=== PATIENT | female | born 1990 | race Caucasian/White ===

== ENCOUNTER 2016-08-22 18:31 | Emergency (ER) | payer BC, OTHER ==
[2016-08-22 18:37] VITALS: BP 151/88; PULSE 82; TEMP 98.9; BMI 26.5
--- NOTE | 2016-08-22 18:50 | PDOC ---
History of Present Illness - General History Source: Patient Exam Limitations: No Limitations - History of Present Illness Initial Comments: 08/22/16 18:59 The patient is a 25 year old female with no significant past medical history who presents to the ED complaining right fourth finger nail injury that occurred this evening. She states she was running on a treadmill when she hit her finger on the machine. She is wearing acrylic nails, and her right fourth acrylic nail came off, pulling off the nail underneath up until the base of the nail. On evaluation, the patient complains of 5/10 pain. She denies any other injury. <Alessandra Ortiz - Last Filed: 08/22/16 18:59> <Best Kebede - Last Filed: 08/22/16 19:08> - General Chief Complaint: Pain, Acute Stated Complaint: NAIL INJURY Time Seen by Provider: 08/22/16 18:32 Past History <Alessandra Ortiz - Last Filed: 08/22/16 18:59> - Past Medical History Thyroid Disease: Yes - Surgical History Cholecystectomy: Yes - Immunization History Immunization Up to Date: Yes (TETANUS TODAY, 12/23/14) - Psycho/Social/Smoking Cessation Hx Anxiety: No Suicidal Ideation: No Smoking Status: No Smoking History: Never smoked Number of Cigarettes Smoked Daily: 0 Hx Alcohol Use: No Drug/Substance Use Hx: No Substance Use Type: None Hx Substance Use Treatment: No <Best Kebede - Last Filed: 08/22/16 19:08> - Past Medical History Allergies/Adverse Reactions: Allergies Allergy/AdvReac Type Severity Reaction Status Date / Time No Known Allergies Allergy Verified 08/22/16 18:33 Home Medications: Ambulatory Orders Levothyroxine [Synthroid -] 110 mcg PO DAILY 08/22/16 Naproxen [EC-Naprosyn] 375 mg PO BID PRN #10 tablet.ec 08/22/16 Norgestimate-Ethinyl Estradiol [Sprintec 28 Day Tablet] 1 each PO DAILY Review of Systems - Review of Systems Able to Perform ROS?: Yes Comments:: 08/22/16 19:02 CONSTITUTIONAL: Absent: Fever, Chills, Diaphoresis, Generalized Weakness, Malaise, Loss of Appetite HEENT: Absent: Rhinorrhea, Nasal Congestion, Throat Pain, Throat Swelling, Difficulty Swallowing, Mouth Swelling, Ear Pain, Eye Pain, Visual Changes CARDIOVASCULAR: Absent: Chest Pain, Syncope, Palpitations, Irregular Heart Rate, Lightheadedness , Peripheral Edema RESPIRATORY: Absent: Cough, Shortness of Breath, SOB with Exertion, Orthopnea, Wheezing, Stridor, Hemoptysis GASTROINTESTINAL: Absent: Abdominal pain, Abdominal Distension, Nausea, Vomiting, Diarrhea, Constipation, Melena, Hematochezia GENITOURINARY: Absent: Dysuria, Frequency, Urgency, Hesitancy, Flank Pain, Genital Pain MUSCULOSKELETAL: Absent: Myalgia, Arthralgia, Joint Swelling, Back pain, Neck Pain SKIN: Present: R fourth nail injury Absent: Rash, Itching, PalloR HEMEATOLOGIC/IMMUNOLOGIC: Absent: Easy Bleeding, Easy Bruising, Lymphadenopathy, Frequent infections ENDOCRINE: Absent: Unexplained Weight Gain, Unexplained Weight Loss, Heat Intolerance, Cold Intolerance NEUROLOGIC: Absent: Headache, Focal Weakness, Paresthesias, Vertigo, Lightheadedness, Unsteady Gait, Seizure, Mental Status Changes, Incontinence PSYCHIATRIC: Absent: Anxiety, Depression <Alessandra Ortiz - Last Filed: 08/22/16 18:59> *Physical Exam - Vital Signs Last Vital Signs Temp Pulse Resp BP Pulse Ox 98.9 F 82 16 151/88 100 08/22/16 18:32 08/22/16 18:32 08/22/16 18:32 08/22/16 18:32 08/22/16 18:32 - Physical Exam Comments: 08/22/16 19:02 GENERAL: [The patient is awake, alert, and fully oriented, in no acute distress. ] HEAD: [Normal with no signs of trauma.] EYES: [Pupils equal, round and reactive to light, extraocular movements intact, sclera anicteric, conjunctiva clear.] EXTREMITIES: [Normal range of motion, no edema.] NEUROLOGICAL: [Normal speech, normal gait.] PSYCH: [Normal mood, normal affect.] SKIN: [Warm, Dry, normal turgor, no rashes or lesions noted.] <Alessandra Ortiz - Last Filed: 08/22/16 18:59> - Vital Signs Last Vital Signs Temp Pulse Resp BP Pulse Ox 98.9 F 82 16 151/88 100 08/22/16 18:32 08/22/16 18:32 08/22/16 18:32 08/22/16 18:32 08/22/16 18:32 <Best Kebede - Last Filed: 08/22/16 19:08> Medical Decision Making - Medical Decision Making 08/22/16 19:05 Patient is a 25-year-old female who presents with an avulsion injury to her right ring finger nail with acrylic converse. She bumped the nail into the treadmill at the gym and the nail came off the nailbed, but the base remained in place and intact. On examination, the nail has some bleeding along the distal margin, but is in good position with the base of the nail in proper position. Finger soaked with Betadine solution and saline. Bacitracin applied to the edges of the nail. Dressing applied to maintain the nail in good position and to protect it. Naprosyn given for pain. Patient stable for discharge. <Best Kebede - Last Filed: 08/22/16 19:08> *DC/Admit/Observation/Transfer - Attestations Scribe Attestion: 08/22/16 19:03 Documentation prepared by Alessandra Ortiz, acting as medical receptionist biller for Best Kebede MD. <Alessandra Ortiz - Last Filed: 08/22/16 18:59> - Discharge Dispostion Admit: No <Best Kebede - Last Filed: 08/22/16 19:08> Diagnosis at time of Disposition: Partial avulsion of fingernail Qualifiers: Encounter type: initial encounter Qualified Code(s): S61.309A - Unspecified open wound of unspecified finger with damage to nail, initial encounter - Discharge Dispostion Disposition: HOME Condition at time of disposition: Stable - Prescriptions Prescriptions: Naproxen [EC-Naprosyn] 375 mg PO BID PRN #10 tablet.ec PRN Reason: Pain - Patient Instructions Additional Instructions: You were evaluated today for a partial avulsion of the right fourth fingernail. The base of the nail is still in good position, so continue to protect the nail in its normal position and it will heal back down to the nail bed. Apply ice packs to help with pain, 20 minutes every few hours. Take Naprosyn twice a day as needed for pain. Elevate the hand to reduce throbbing and pain. Follow up immediately with your doctor or the ER if there are any signs of infection. The new nail should grow out in a healthy fashion with time.
[2016-08-22] MEDS ORDERED: NAPROXEN 375 MG TABLET (FP) PO ONE (19:04)
[2016-08-22] MEDS ORDERED: NAPROXEN 375 MG TABLET (FP) ONE (19:05)
== END 2016-08-22 19:11 | disposition home or self-care (01) ==
LOC: FER 18:31
DX: S61.309A Unspecified open wound of unspecified finger with damage to nail, initial encounter (principal); W21.89XA Striking against or struck by other sports equipment, initial encounter; Y93.A1 Activity, exercise machines primarily for cardiorespiratory conditioning; Y92.39 Other specified sports and athletic area as the place of occurrence of the external cause; E07.9 Disorder of thyroid, unspecified
CPT/HCPCS: 99282-25

== ENCOUNTER 2016-09-30 06:34 | Emergency (ER) | payer OTHER ==
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
[2016-09-30 08:02] VITALS: BP 122/63; PULSE 85; TEMP 98.1; BMI 32.9
[2016-09-30 08:22] LABS: BASOPHIL 0.4 % (0-2.0); EOSINOPHIL 2.2 % (0-4.5); MCH 29.5 pg (25.7-33.7); MCHC 33.3 g/dl (32.0-36.0); MEAN CELL VOLUME 88.7 fl (80-96); MEAN PLT VOLUME 8.8 fl (7.5-11.1); NEUTROPHILS 78.8 % (42.8-82.8); PLATELET COUNT 360 K/MM3 (134-434); RDW 13.1 % (11.6-15.6); WHITE BLOOD COUNT 15.5 K/mm3 (4.0-10.0)
[2016-09-30] MEDS ORDERED: IBUPROFEN 600 MG TABLET (FP) PO ONE (08:33)
[2016-09-30] MEDS: IBUPROFEN 400 MG TABLET (FP) PO ONE ×2 (08:38→08:40)
[2016-09-30 08:50] LABS: ALBUMIN 3.7 g/dl (3.4-5.0); ANION GAP 12 (8-16); CALCIUM 9.1 mg/dL (8.5-10.1); CHOLESTEROL 262 mg/dL (50-200); CO2 22 mmol/L (21-32); COCKROFT - GAULT 183.1325; CREATININE 0.6 mg/dL (0.55-1.02); GLUCOSE,RANDOM 87 mg/dL (74-106); SGOT/AST 16 U/L (15-37); SGPT/ALT 22 U/L (12-78); URIC ACID 4.4 mg/dL (2.6-7.2)
[2016-09-30 08:53] LABS: ALK PHOS 73 U/L (45-117); BILIRUBIN,TOTAL 0.3 mg/dL (0.2-1.0); LDH 183 U/L (84-246); TOT PROT 7.6 g/dl (6.4-8.2)
[2016-09-30 09:31] LABS: HIV 1 & 2 AB NEGATIVE; HIV 1 AGp24 NEGATIVE
== END 2016-09-30 09:13 | disposition home or self-care (01) ==
LOC: JER 06:34
DX: Z77.21 Contact with and (suspected) exposure to potentially hazardous body fluids (principal); S89.81XA Other specified injuries of right lower leg, initial encounter; Y35.811A Legal intervention involving manhandling, law enforcement official injured, initial encounter; Y93.89 Activity, other specified; Y92.238 Other place in hospital as the place of occurrence of the external cause; Y99.0 Civilian activity done for income or pay
CPT/HCPCS: 36415; 73560-TC-RT; 80053; 82465; 82977; 83615; 84100; 84478; 84550; 85025; 86704; 86706; 87340; 87389; 99282-25

== ENCOUNTER 2016-11-17 22:48 | Emergency (ER) | payer BC, OTHER ==
[2016-11-17 22:53] VITALS: BP 128/77; PULSE 71; TEMP 98.1; BMI 33.8
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
== END 2016-11-17 23:07 | disposition home or self-care (01) ==
LOC: FER 22:48
DX: S90.511A Abrasion, right ankle, initial encounter (principal); W22.09XA Striking against other stationary object, initial encounter; Y93.89 Activity, other specified; Y92.9 Unspecified place or not applicable; E03.9 Hypothyroidism, unspecified
CPT/HCPCS: 99282-25

== ENCOUNTER 2017-01-17 02:05 | Emergency (ER) | payer OTHER, BC ==
[2017-01-17 03:14] VITALS: BP 104/55; PULSE 83; TEMP 98.1; BMI 29.6
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
[2017-01-17] MEDS ORDERED: IBUPROFEN 600 MG TABLET (FP) PO ONE (04:07)
== END 2017-01-17 04:19 | disposition home or self-care (01) ==
LOC: JER 02:05
DX: S13.4XXA Sprain of ligaments of cervical spine, initial encounter (principal); V49.49XA Driver injured in collision with other motor vehicles in traffic accident, initial encounter; Y92.414 Local residential or business street as the place of occurrence of the external cause; Y99.0 Civilian activity done for income or pay; Y93.89 Activity, other specified
CPT/HCPCS: 99281-25

== ENCOUNTER 2017-10-26 20:01 | Emergency (ER) | payer BC, OTHER ==
[2017-10-26 20:07] VITALS: BP 123/80; PULSE 80; TEMP 98; BMI 36.6
--- NOTE | 2017-10-26 20:08 | PDOC ---
History of Present Illness - General History Source: Patient Exam Limitations: No Limitations <Sera Wiggins - Last Filed: 10/26/17 21:35> - General History Source: Patient Exam Limitations: No Limitations <Laura Allison I - Last Filed: 10/26/17 22:45> - General Chief Complaint: Chest Pain Stated Complaint: CHEST HEAVINESS Time Seen by Provider: 10/26/17 20:08 - History of Present Illness Initial Comments: 10/26/17 20:26 The patient is a 27 year old female with a significant PMH of hyperthyroidism who presents to the emergency department with intermittent chest pain. The patient reports that she experienced some chest tightness this morning when she woke up. She states that she experienced this chest pain again an hour ago with radiation to her left shoulder. The patient reports that it lasted for a little while . She states that she took advil and was given relief. The patient reports experiencing associated shortness of breath while moving around.The patient reports that she is currently on control. She denies any recent travel. The patient denies any headache or dizziness.she denies any fever, chills, nausea, vomiting, diarrhea or constipation. She denies any urinary symptoms. The patient denies any other complaints. PAST MEDICAL HISTORY: Hyperthyroidism PAST SURGICAL HISTORY: no significant history FAMILY HISTORY: Mother:Bloodclot secondary to malignancy, hypertension SOCIAL HISTORY: Pt lives with family and is employed. MEDICATIONS: reviewed ALLERGIES: As per nursing notes General: No fevers or chills, no weakness, no weight loss HEENT: No change in vision. No sore throat,. No ear pain CardioVascular: (+) chest pain , shortness of breath Respiratory:No cough, or wheezing. Gastrointestinal: no nausea, vomiting, diarrhea or constipation, No rectal bleeding Genitourinary: No dysuria, hematuria, or frequency Musculoskeletal: No joint or muscle pain or swelling Neurologic: No headache, vertigo, dizziness or loss of consciousness Psychiatric: nor depression Skin: No rashes or easy bruising Endocrine: no increased thirst or abnormal weight change Allergic: no skin or latex allergy All other systems reviewed and normal General: Well-nourished well-developed individual, no acute distress HEENT: Throat: Normal, tonsils normal, no erythema or exudate Neck: Supple, no meningeal signs, no lymphadenopathy Eyes::Pupils equal reactive and round, extraocular motion intact Chest: Nontender to palpation Cardiac: S1-S2 normal, regular rate and rhythm, no murmurs rubs or gallops Respiratory: Lungs clear to auscultation bilateral Abdomen: Soft, nondistended, normal bowel sounds, nontender to palpation diffusely Extremities: Warm, dry, no cyanosis, clubbing, or edema Skin: No rashes Neuro: Alert and oriented x3, nonfocal exam, grossly intact, normal gait Psych: Normal mood and affect 10/26/17 21:35 (Sera Wiggins) A portion of this note was documented by scribe services under my direction. I have reviewed the details of the note, within reason, and agree with the documentation. The case summary and management plan written by me. 10/26/17 20:44 Medical decision making: This is a 26-year-old female who comes in complaining of some pleuritic type chest pain associated with some shortness of breath. Patient has risk factors for PE including control pills and her mother who has history of DVTs secondary to a malignancy. Will obtain workup including CBC, comp, d-dimer, cardiac enzymes, EKG and chest x-ray. If d-dimer is elevated we'll obtain a CT angiogram of chest Will reassess and follow-up results 10/26/17 22:43 Reassessment patient symptoms are unchanged. She is stable. Patient's workup was completely negative. She had a normal white count and normal H&H. Her chemistries were normal and her d-dimer was normal. Her urine did have a few red cells and white cells but she has no symptoms of a urinary tract infection so I'll not treat at this time.. Patient discharged home will follow-up with her primary care doctor. (Laura Allison I) Past History <Sera Wiggins - Last Filed: 10/26/17 21:35> - Past Medical History COPD: No Thyroid Disease: Yes (HYPO) - Surgical History Cholecystectomy: Yes - Immunization History Immunization Up to Date: Yes (TETANUS TODAY, 12/23/14) - Suicide/Smoking/Psychosocial Hx Smoking Status: No Smoking History: Unknown if ever smoked Have you smoked in the past 12 months: No Number of Cigarettes Smoked Daily: 0 Information on smoking cessation initiated: No Hx Alcohol Use: No Drug/Substance Use Hx: No Substance Use Type: None Hx Substance Use Treatment: No <Laura Allison I - Last Filed: 10/26/17 22:45> - Past Medical History Allergies/Adverse Reactions: Allergies Allergy/AdvReac Type Severity Reaction Status Date / Time No Known Allergies Allergy Verified 01/17/17 03:14 Home Medications: Ambulatory Orders Levothyroxine [Synthroid -] 88 mcg PO DAILY 10/26/17 - Vital Signs Last Vital Signs Temp Pulse Resp BP Pulse Ox 98 F 80 14 123/80 100 10/26/17 20:04 10/26/17 20:04 10/26/17 20:04 10/26/17 20:04 10/26/17 20:04 Heart Score/ECG Review <Sera Wiggins - Last Filed: 10/26/17 21:35> <Laura Allison I - Last Filed: 10/26/17 22:45> - ECG Intrepretation Comment:: 10/26/17 21:10 Vent rate: 65 bpm QRS Interval: 86ms QT/QTc: 398/413 Normal sinus rythm (Sera Wiggins) ED Treatment Course - LABORATORY CBC & Chemistry Diagram: 10/26/17 20:20 10/26/17 20:20 <Sera Wiggins - Last Filed: 10/26/17 21:35> - LABORATORY CBC & Chemistry Diagram: 10/26/17 20:20 10/26/17 20:20 <Laura Allison I - Last Filed: 10/26/17 22:45> - ADDITIONAL ORDERS Additional order review: Laboratory Results 10/26/17 10/26/17 10/26/17 20:20 20:20 20:20 D-Dimer Sodium 136 Potassium 4.0 Chloride 101 Carbon Dioxide 27 Anion Gap 8 BUN 14 Creatinine 0.9 Creat Clearance w eGFR > 60 Random Glucose 83 Calcium 9.2 Total Bilirubin 0.8 AST 17 ALT 17 Alkaline Phosphatase 67 Creatine Kinase 41 Troponin I < 0.03 Total Protein 7.3 Albumin 3.8 Urine Color Urine Appearance Urine pH Ur Specific [place] Urine Protein Urine Glucose (UA) Urine Ketones Urine Blood Urine Nitrite Urine Bilirubin Urine Urobilinogen Ur Leukocyte Esterase Urine HCG, Qual 10/26/17 10/26/17 20:20 20:05 D-Dimer 232 Sodium Potassium Chloride Carbon Dioxide Anion Gap BUN Creatinine Creat Clearance w eGFR Random Glucose Calcium Total Bilirubin AST ALT Alkaline Phosphatase Creatine Kinase Troponin I Total Protein Albumin Urine Color Yellow Urine Appearance Clear Urine pH 5.5 Ur Specific [place] 1.020 Urine Protein Negative Urine Glucose (UA) Negative Urine Ketones Negative Urine Blood 2+ H Urine Nitrite Negative Urine Bilirubin Negative Urine Urobilinogen 0.2 Ur Leukocyte Esterase 2+ H Urine HCG, Qual Negative 10/26/17 20:20 RBC 4.95 MCV 87.2 MCHC 33.7 RDW 12.2 MPV 8.1 Neutrophils % 61.4 Lymphocytes % 24.1 Monocytes % 6.6 Eosinophils % 6.4 H Basophils % 1.5 - RADIOLOGY Radiology Studies Ordered: Category Date Time Status CHEST X-RAY PORTABLE* [RAD] Stat Radiology 10/26/17 20:14 Completed - Medications Given in the ED: ED Medications Discontinued Medications Generic Name Dose Route Start Last Admin Trade Name Freq PRN Reason Stop Dose Admin Acetaminophen 1,000 mg 10/26/17 22:06 10/26/17 22:09 Tylenol - PO 10/26/17 22:07 1,000 mg ONCE ONE Administration *DC/Admit/Observation/Transfer <Sera Wiggins - Last Filed: 10/26/17 21:35> - Discharge Dispostion Decision to Admit order: No <aLura Allison I - Last Filed: 10/26/17 22:45> Diagnosis at time of Disposition: Chest wall discomfort - Discharge Dispostion Disposition: HOME Condition at time of disposition: Good - Referrals Referrals: Ursula Hicks MD [Primary Care Provider] - - Patient Instructions Additional Instructions: Take Tylenol or Motrin as needed for the pain. Your workup was completely negative including the test looking for a blood clot. Return to the emergency department immediately with ANY new, persistent or worsening symptoms. Continue any medications as previously prescribed by your physician. You should follow up with your primary doctor as soon as possible regarding today's emergency department visit. . Please make sure your doctor reviews the results of your emergency evaluation. Thank you for coming to the Emergency Department today for your care. It was a pleasure to see you today. Please note that your evaluation is INCOMPLETE until you follow-up with your doctor. - Post Discharge Activity - Attestations Scribe Attestion: 10/26/17 20:26 Documentation prepared by Sera Wiggins, acting as director medical economics for Laura Allison MD. (Sera Wiggins)
[2017-10-26 20:35] LABS: HEMOGLOBIN 14.6 GM/dl (10.7-15.3); MEAN PLT VOLUME 8.1 fl (7.5-11.1)
[2017-10-26 20:37] LABS: BASO % 1.5 % (0-2.0); EOS % 6.4 % (0-4.5); HEMATOCRIT 43.2 % (32.4-45.2); LYMPH % 24.1 % (8-40); MCH 29.4 pg (25.7-33.7); MCHC 33.7 g/dl (32.0-36.0); MEAN CELL VOLUME 87.2 fl (80-96); MONO % 6.6 % (3.8-10.2); NEUT % 61.4 % (42.8-82.8); PLATELET COUNT 502 K/MM3 (134-434); RBC 4.95 M/mm3 (3.60-5.2); RDW 12.2 % (11.6-15.6); WHITE BLOOD COUNT 9.2 K/mm3 (4.0-10.8)
[2017-10-26 21:00] LABS: ALBUMIN 3.8 g/dl (3.5-5.0); ALK PHOS 67 U/L (32-92); ANION GAP 8 (8-16); BILIRUBIN,TOTAL 0.8 mg/dl (0.2-1.0); BLOOD UREA NITROGEN 14 mg/dl (7-18); CALCIUM 9.2 mg/dl (8.4-10.2); CHLORIDE 101 mmol/L (98-107); CO2 27 mmol/L (22-28); CREATININE 0.9 mg/dl (0.6-1.3); GLUCOSE,RANDOM 83 mg/dl (74-106); SGOT/AST 17 U/L (10-42); SGPT/ALT 17 U/L (10-40); SODIUM 136 mmol/L (136-145); TOT PROT 7.3 g/dl (6.4-8.3)
[2017-10-26 21:01] LABS: PH,URINE 5.5 (4.5-8); URINE APPEARANCE Clear; URINE BILIRUBIN Negative (NEGATIVE); URINE COLOR YELLOW; URINE GLUCOSE (UA) Negative (NEGATIVE); URINE KETONE Negative (NEGATIVE); URINE LEUK ESTERASE 2+ (NEGATIVE); URINE NITRITE Negative (NEGATIVE); URINE PROTEIN Negative (NEGATIVE); URINE UROBILINOGEN 0.2 (0.2-1.0)
[2017-10-26 21:12] LABS: HCG,QUALITATIVE URINE NEGATIVE
[2017-10-26] MEDS ORDERED: ACETAMINOPHEN 500 MG TABLET (FP) PO ONE (22:06)
[2017-10-26] MEDS ORDERED: ACETAMINOPHEN 500 MG TABLET (FP) ONE (22:10)
[2017-10-26 23:17] LABS: EPI CELLS FEW /HPF; URINE BACTERIA FEW /hpf (NEGATIVE); URINE WBC 15-25 (0-5)
--- NOTE | 2017-10-27 11:46 | EKG ---
Test Reason : Blood Pressure : / mmHG Vent. Rate : 065 BPM Atrial Rate : 065 BPM P-R Int : 136 ms QRS Dur : 086 ms QT Int : 398 ms P-R-T Axes : 017 049 033 degrees QTc Int : 413 ms NORMAL SINUS RHYTHM NORMAL ECG WHEN COMPARED WITH ECG OF 09-JAN-2014 14:28, NO SIGNIFICANT CHANGE WAS FOUND Confirmed by CURRY ALLRED MD ([id number]) on 10/27/2017 11:45:57 AM Referred By: MD RONQUILLO Confirmed By:CURRY ALLRED MD
== END 2017-10-26 22:47 | disposition home or self-care (01) ==
LOC: FER 20:01
DX: R07.89 Other chest pain (principal); E03.9 Hypothyroidism, unspecified
CPT/HCPCS: 36415; 71045-TC-FY; 80053; 81003; 81015; 82550; 84484; 84703; 85025; 85379; 93005; 99284-25

== ENCOUNTER 2018-04-30 03:43 | Emergency (ER) | payer OTHER, BC ==
[2018-04-30 04:04] VITALS: BP 120/75; PULSE 86; TEMP 98; BMI 27.4
--- NOTE | 2018-04-30 04:07 | PDOC ---
Attending Attestation - Resident Resident Name: Vinny Healy - ED Attending Attestation I have performed the following: I have examined & evaluated the patient, The case was reviewed & discussed with the resident, I agree w/resident's findings & plan
[2018-04-30 04:24] LABS: URINE APPEARANCE CLEAR; URINE BILIRUBIN NEGATIVE (<2.0 mg/dL); URINE COLOR YELLOW; URINE GLUCOSE (UA) NEGATIVE (NEGATIVE); URINE KETONE NEGATIVE (NEGATIVE); URINE LEUK ESTERASE NEGATIVE (NEGATIVE); URINE NITRITE NEGATIVE (NEGATIVE); URINE PROTEIN 2+ (NEGATIVE); URINE UROBILINOGEN NEGATIVE mg/dL (0.2-1.0)
[2018-04-30 04:28] LABS: EPI CELLS RARE /HPF (FEW); URINE BACTERIA FEW /hpf (NONE SEEN); URINE HYALINE CAST 1 /lpf; URINE MUCUS MODERATE
--- NOTE | 2018-04-30 05:21 | PDOC ---
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 - Physicial Exam PE: 04/30/18 05:21 Agree with resident exam - Medical Decision Making 04/30/18 05:21 If XR normal; home with mahesh wrap.
--- NOTE | 2018-04-30 05:31 | PDOC ---
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 No other injury. Past History - Past Medical History Allergies/Adverse Reactions: Allergies Allergy/AdvReac Type Severity Reaction Status Date / Time No Known Allergies Allergy Verified 04/30/18 04:02 Home Medications: Ambulatory Orders Cetirizine HCl [Zyrtec -] 10 mg PO DAILY 01/17/18 Levothyroxine [Synthroid -] 100 mcg PO DAILY 01/17/18 Norgestimate-Ethinyl Estradiol [Sprintec 28 Day Tablet] 1 each PO DAILY COPD: No Thyroid Disease: Yes (HYPO) - Surgical History Cholecystectomy: Yes - Immunization History TDAP Vaccination: Yes (DECEMBER 2014) Immunization Up to Date: Yes (TETANUS TODAY, 12/23/14) - Suicide/Smoking/Psychosocial Hx Smoking Status: No Smoking History: Never smoked Have you smoked in the past 12 months: No Number of Cigarettes Smoked Daily: 0 Information on smoking cessation initiated: No Hx Alcohol Use: No Drug/Substance Use Hx: No Substance Use Type: None Hx Substance Use Treatment: No Review of Systems - Review of Systems Able to Perform ROS?: Yes Is the patient limited [place] proficient: No Constitutional: No: Symptoms Reported HEENTM: No: Symptoms Reported Respiratory: No: Symptoms reported Cardiac (ROS): No: Symptoms Reported ABD/GI: No: Symptoms Reported Musculoskeletal: No: Symptoms Reported Integumentary: No: Symptoms Reported Neurological: No: Symptoms reported *Physical Exam - Vital Signs Last Vital Signs Temp Pulse Resp BP Pulse Ox 98.0 F 86 18 120/75 100 04/30/18 04:03 04/30/18 04:03 04/30/18 04:03 04/30/18 04:03 04/30/18 04:03 - Physical Exam Musculoskeletal: positive: Normal Inspection. negative: CVA Tenderness Extremity: positive: Normal Capillary Refill, Normal Inspection, Normal Range of Motion, Tender (over proximal phalanx of right fifth digit. ) ED Treatment Course - ADDITIONAL ORDERS Additional order review: Laboratory Results 04/30/18 04:17 Urine Color Yellow Urine Appearance Clear Urine pH 6.0 Ur Specific [place] 1.029 Urine Protein 2+ H Urine Glucose (UA) Negative Urine Ketones Negative Urine Blood Negative Urine Nitrite Negative Urine Bilirubin Negative Urine Urobilinogen Negative Ur Leukocyte Esterase Negative Urine WBC (Auto) 3 Urine RBC (Auto) 2 Ur Epithelial Cells Rare Urine Bacteria Few Hyaline Casts 1 Urine Mucus Moderate - RADIOLOGY Radiology Studies Ordered: Category Date Time Status HAND- RIGHT [RAD] Stat Radiology 04/30/18 04:04 Taken Medical Decision Making - Medical Decision Making 04/30/18 05:41 xray to r/o fracture. Xray negative for fractures. Likely sprain. patient able to range fully, minimal pain. Doesnt need pain control. Will d/c *DC/Admit/Observation/Transfer Diagnosis at time of Disposition: Finger injury - Discharge Dispostion Disposition: HOME Condition at time of disposition: Improved Decision to Admit order: No - Referrals - Patient Instructions Printed Discharge Instructions: Finger Sprain Additional Instructions: Come back to the ER for any new, worsening or concerning symptoms. - Post Discharge Activity
== END 2018-04-30 05:33 | disposition home or self-care (01) ==
LOC: JER 03:43
DX: S63.636A Sprain of interphalangeal joint of right little finger, initial encounter (principal); Y35.811A Legal intervention involving manhandling, law enforcement official injured, initial encounter; Y93.89 Activity, other specified; Y92.89 Other specified places as the place of occurrence of the external cause; Y99.0 Civilian activity done for income or pay
CPT/HCPCS: 73130-TC-RT-FY; 81003; 81015; 99282-25

== ENCOUNTER 2019-01-25 12:17 | Emergency (ER) | payer BC, OTHER | END 2019-01-25 12:49 | disposition home or self-care (01) | LOC: FER 12:17 ==

== ENCOUNTER 2019-12-21 06:36 | Day surgery (SDC) | payer BC ==
[2019-12-21 06:53] VITALS: BMI 39.3
--- NOTE | 2019-12-21 07:46 | PDOC ---
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 She was diagnosed with an 8mm kidney stone on the L on November 13. She states she has not had pain in the interim. Pain is intermittent, colicky, sharp, radiating to LLQ. She took tylenol without relief. She is approximately 2.5 weeks into her menstrual cycle. Currently with mild dull pain. - Physicial Exam PE: GENERAL: Awake, alert, and fully oriented, in no acute distress HEAD: No signs of trauma EYES: PERRLA, EOMI, sclera anicteric, conjunctiva clear ENT: Auricles normal inspection, hearing grossly normal, nares patent, oropharynx clear without exudates. Moist mucosa NECK: Normal ROM, supple, no lymphadenopathy, JVD, or masses LUNGS: Breath sounds equal, clear to auscultation bilaterally. No wheezes, and no crackles HEART: Regular rate and rhythm, normal S1 and S2, no murmurs, rubs or gallops ABDOMEN: Soft, +LLQ tenderness, normoactive bowel sounds. No guarding, no rebound. No masses EXTREMITIES: Normal range of motion, no edema. No clubbing or cyanosis. No cor ds, erythema, or tenderness NEUROLOGICAL: Cranial nerves II through XII grossly intact. Normal speech, normal gait. Motor and sensation intact SKIN: Warm, dry, normal turgor, no rashes or lesions noted. - Medical Decision Making Pt was uncomfortable but very mild pain on my initial assessment. DDx at that time was kidney stone vs infected stone vs ruptured ovarian cyst. However, on repeat exam she was very uncomfortable, unable to find a comfortable position in chair. More suspicious for kidney stone. Contacted Dr. Durbin as she is already scheduled for future lithotripsy. Will take her for lithotripsy today. Discharge - Discharge Information Problems reviewed: Yes Clinical Impression/Diagnosis: Nephrolithiasis Condition: Stable - Follow up/Referral Referrals: Nicole Washington MD [Primary Care Provider] - - Patient Discharge Instructions - Post Discharge Activity
--- NOTE | 2019-12-21 07:52 | PDOC ---
History of Present Illness - General Chief Complaint: Pain Stated Complaint: PAIN,LT SIDE Time Seen by Provider: 12/21/19 07:06 Exam Limitations: No Limitations - History of Present Illness Initial Comments: 29 yo female with pmh of miguel, right sided ovarian cyst, and nephrolithiasis coming in with left sided flank pain that started last night at 7:30 pm. Pt explains that pain is similar to pain she had on November 13 in [facility] that was diagnosed as 8mm left sided kidney stone. Pt is scheduled to have lithotripsy with Dr. Durbin on January 13. Pt explains pain has been worsening. Pt has tried tylenol (last at 2 AM), but has not helped. Pt explains pain is pressure type pain starting on umbilical area and radiates up left flank. Patient has associated sxs of nonbillious nonbloddy emesis, diarrhea, and chills. Pt denies any burning in urination, SOB, Chest pain, fever, or cough. 12/21/19 08:15 12/21/19 10:39 Is this a multiple visit Asthma Patient?: No Timing/Duration: 24 hours (Pain started at 19:30 last night. ), getting worse Severity: severe Modifying Factors: improves with: medication (pt took tylenol which usually helps with her pain ) Associated Symptoms: reports: fever/chills (pt has chills but no fever), nausea/vomiting (2 episodes of nonbloddy nonbilious emesis ) Aspirin Received prior to arrival: Yes: no aspirin today Past History - Travel History Traveled outside of the country in the last 30 days: No - Medical History Allergies/Adverse Reactions: Allergies Allergy/AdvReac Type Severity Reaction Status Date / Time No Known Allergies Allergy Verified 12/21/19 06:53 Home Medications: Ambulatory Orders Cetirizine HCl [Zyrtec -] 10 mg PO DAILY 01/17/18 Norgestimate-Ethinyl Estradiol [Sprintec 28 Day Tablet] 1 each PO DAILY 01/17/18 Amoxicillin/Potassium Clav [Augmentin 875-125 Tablet] 1 each PO BID #10 tablet 01/25/19 Levothyroxine Sodium [Tirosint] 100 mcg PO DAILY 01/25/19 Asthma: Yes (Recently diagnosed no meds taking) COPD: No Disorders: No Kidney Stones: Yes (8 mm kidney stone in left renal calculi ) Thyroid Disease: Yes (HYPO) - Surgical History Cholecystectomy: Yes - Family History Family Hx Renal Disease: Father (Kidney cancer) - Reproductive History LMP Normal: Yes (3 weeks ago ) Is Patient Now?: No Comment:: 2.2cm Ovairian cyst on right side 12/21/19 08:10 - Immunization History TDAP Vaccination: Yes (DECEMBER 2014) Immunization Up to Date: Yes (TETANUS TODAY, 12/23/14) - Psycho-Social/Smoking History Smoking Status: No Smoking History: Never smoked Have you smoked in the past 12 months: No Number of Cigarettes Smoked Daily: 0 - Substance Abuse Hx (Audit-C & DAST Scrn) How often the patient has a drink containing alcohol: Never Score: In Men: 4 or > Positive; In Women: 3 or > Positive: 0 Screen Result (Pos requires Nsg. Audit-10AR): Negative In the last yr the pt used illegal drug/Rx for NonMed reason: No Score: Yes response is considered Positive: 0 Screen Result (Positive result requires Nsg. DAST-10): Negative Review of Systems - Review of Systems Comments:: General: Chills Heent: Denies any eye pain, nasal congestion, cough, throat pain Resp: denies SOB, cough Cardiac: Denies Chest pain, palpitations, SOB Abd: See History : see history; denies urinary frequency, burning in urination, blood in urine GI: see above; denies any bloody bowel movements MSK: denies any athralgia Neuro: denies numbness, or weakness, or FNL Endo: Denies any recent weight loss Psych: denies depression or Suicidal idealation 12/21/19 08:50 12/21/19 08:54 Constitutional: Yes: Chills ABD/GI: Yes: See HPI, Diarrhea (Pt has history of diarrhea for years and had diarrhea last night ), Vomiting (pt had two episodes of emesis ) : Yes: See HPI, Flank Pain All Other Systems: Reviewed and Negative *Physical Exam - Vital Signs Last Vital Signs Temp Pulse Resp BP Pulse Ox 98.4 F 79 18 99/73 98 12/21/19 06:51 12/21/19 06:51 12/21/19 06:51 12/21/19 06:51 12/21/19 06:51 - Physical Exam General: Pt is in moderate distress holding left side HEENT: Normocephalic atraumatic. Eyes: EOMI Cardiac: Normal S1 and S2; no murmurs rubs or gallops Resp: CTA bilaterally no wheezes rales or rhonchi ABD: Normal bowel sounds in all four quadrants; No tenderness to palpation in all four quadrants : Neg CVA tenderness bilaterally MSK: 5/5 Muscle strength in upper and lower extremity bilaterally Neuro: normal sensation in upper and lower extremity bilaterally 12/21/19 08:55 12/21/19 08:57 General Appearance: Yes: Appropriately Dressed, Apparent Distress ED Treatment Course - LABORATORY CBC & Chemistry Diagram: 12/21/19 08:10 12/21/19 08:10 Medical Decision Making - Medical Decision Making Pt has left sided flank pain with known left sided 8mm in middle renal calculi and scheduled lithotripsy with Dr. Lima on January 13. Pt will get CBC, CMP, lip ase, and renal ultrasound to rule out hydro, or infection, or any possible pancreatic etiology. Pt has also received IV tylenol for pain and zofran for nausea. Will review labs and patient and make further considerations. 12/21/19 08:21 12/21/19 09:04 12/21/19 10:40 Pt was seen by and is scheduled for Lithotripsy for later today Discharge - Discharge Information Problems reviewed: Yes Clinical Impression/Diagnosis: Nephrolithiasis Condition: Guarded - Admission Yes - Follow up/Referral Referrals: Nicole Washington MD [Primary Care Provider] - - Patient Discharge Instructions - Post Discharge Activity
[2019-12-21] MEDS ORDERED: ONDANSETRON 4 MG/2 ML VIAL IVPUSH ONE (08:00)
[2019-12-21] MEDS ORDERED: ACETAMINOPHEN 1000 MG/100 ML VIAL (NON FORMULARY) IVPB ONE (08:01)
[2019-12-21] MEDS ORDERED: SODIUM CHLORIDE 0.9% 500 ML INFUS.BAG IV ONE (08:01)
[2019-12-21 08:28] LABS: BASO % 1.1 % (0-2.0); EOS % 3.6 % (0-4.5); HEMATOCRIT 42.2 % (32.4-45.2); HEMOGLOBIN 13.8 GM/dL (10.7-15.3); LYMPH % 14.6 % (8-40); MCH 29.3 pg (25.7-33.7); MCHC 32.7 g/dl (32.0-36.0); MEAN CELL VOLUME 89.6 fl (80-96); MEAN PLT VOLUME 8.5 fl (7.5-11.1); MONO % 7.2 % (3.8-10.2); NEUT % 73.5 % (42.8-82.8); PLATELET COUNT 378 K/MM3 (134-434); RBC 4.72 M/mm3 (3.60-5.2); RDW 12.9 % (11.6-15.6); WHITE BLOOD COUNT 13.9 K/mm3 (4.0-10.0)
[2019-12-21 08:31] LABS: PH,URINE 5.5 (5.0-8.0); URINE APPEARANCE CLEAR; URINE BILIRUBIN NEGATIVE (NEGATIVE); URINE COLOR YELLOW; URINE GLUCOSE (UA) NEGATIVE (NEGATIVE); URINE KETONE NEGATIVE (NEGATIVE); URINE LEUK ESTERASE NEGATIVE (NEGATIVE); URINE NITRITE NEGATIVE (NEGATIVE); URINE PROTEIN NEGATIVE (NEGATIVE); URINE UROBILINOGEN 0.2 mg/dL (0.2-1.0)
[2019-12-21 09:13] LABS: ALBUMIN 3.8 g/dl (3.4-5.0); BILIRUBIN,TOTAL 0.5 mg/dL (0.2-1); BLOOD UREA NITROGEN 17.1 mg/dL (7-18); CALCIUM 9.5 mg/dL (8.5-10.1); CREATININE 0.9 mg/dL (0.55-1.3)
[2019-12-21 09:14] LABS: TOT PROT 7.5 g/dl (6.4-8.2)
[2019-12-21] MEDS ORDERED: ACETAMINOPHEN INJECTION 100 ML IVPB ONE (09:50)
[2019-12-21] MEDS ORDERED: CEFTRIAXONE 1 GM/50 ML BAG ONE (10:01)
[2019-12-21] MEDS ORDERED: CEFTRIAXONE 1 GM in DEXTROSE 5%-WATER - 50 ML IVPB ONE (10:01)
[2019-12-21] MEDS ORDERED: KETOROLAC TROMETHAMINE 15 MG/ML VIAL IVPUSH ONE (11:07)
[2019-12-21] MEDS ORDERED: ONDANSETRON 4 MG/2 ML VIAL IVPUSH PRN ×2 (11:37→13:13)
[2019-12-21] MEDS ORDERED: PROMETHAZINE HCL 25 MG/1 ML VIAL IVPB PRN ×2 (11:37→13:13)
[2019-12-21] MEDS ORDERED: LACTATED RINGERS SOLUTION 1,000 ML IV SCH ×2 (11:45→13:13)
[2019-12-21] MEDS ORDERED: KETOROLAC TROMETHAMINE 15 MG/ML VIAL ONE (11:52)
--- NOTE | 2019-12-21 12:10 | CON.GU ---
Consult Consult Specialty:: urology Referred by:: Gifty Reason for Consultation:: left renal colic - History of Present Illness Chief Complaint: left renal colic History of Present Illness: Patient is a 29 year old female with history of left 8mm renal stone. Patient presents with severe left flank pain with nausea and vomiting. Patient has been unable to maintain a diet. She reports chills but denies fever or gross hemat uria. - History Source History Provided By: Patient Limitations to Obtaining History: No Limitations - Past Medical History ...LMP: 02/26/12 ...: No - Alcohol/Substance Use Hx Alcohol Use: No - Smoking History Smoking history: Never smoked Have you smoked in the past 12 months: No Aproximately how many cigarettes per day: 0 Home Medications - Allergies Allergies/Adverse Reactions: Allergies Allergy/AdvReac Type Severity Reaction Status Date / Time No Known Allergies Allergy Verified 12/21/19 06:53 - Home Medications Home Medications: Ambulatory Orders Cetirizine HCl [Zyrtec -] 10 mg PO DAILY 01/17/18 Norgestimate-Ethinyl Estradiol [Sprintec 28 Day Tablet] 1 each PO DAILY 01/17/18 Amoxicillin/Potassium Clav [Augmentin 875-125 Tablet] 1 each PO BID #10 tablet 01/25/19 Levothyroxine Sodium [Tirosint] 100 mcg PO DAILY 01/25/19 Physical Exam- Vital Signs: Vital Signs Temperature 98.4 F 12/21/19 06:51 Pulse Rate 79 12/21/19 06:51 Respiratory Rate 18 12/21/19 06:51 Blood Pressure 99/73 12/21/19 06:51 O2 Sat by Pulse Oximetry (%) 98 12/21/19 06:51 Constitutional: Yes: Anxious, Moderate Distress Eyes: Yes: WNL, Conjunctiva Clear, EOM Intact HENT: Yes: WNL, Atraumatic, Normocephalic Neck: Yes: WNL, Supple, Trachea Midline Cardiovascular: Yes: WNL, Regular Rate and Rhythm Respiratory: Yes: Regular Gastrointestinal: Yes: Soft, Hypoactive Bowel Sounds Renal/: Yes: CVA Tenderness - Left Kidneys: Yes: Flank Pain Left Pelvis: Yes: Bladder Non Palpable External Genitalia: Yes: WNL Musculoskeletal: Yes: WNL Extremities: Yes: WNL Labs: CBC, BMP 12/21/19 08:10 12/21/19 08:10 Imaging - Results Ultrasound: Report Reviewed Assessment/Plan imp left hydronephrosis secondary to 8mm stone severe left colic with inability to maintain a diet plan patient is emergently taken to the operating room due to severity of the colic and inablility to maintain a diet with high risk of acute renal injury 25 minutes devoted to patient and staff discussions
[2019-12-21] MEDS ORDERED: GENTAMICIN 80MG PREMIX BAG IVPB ONE (12:55)
--- NOTE | 2019-12-21 13:27 | OP ---
Operative Note - Note: Operative Date: 12/21/19 Pre-Operative Diagnosis: left hydronephrosis with 8mm upper infundibular obstruction Operation: cystoscopy with left retrograde pyelogram/left ureteroscopic stone manipulation/stent placement Findings: upper pole high grade hydronephrois secondary stone causing infundibular obstruction Post-Operative Diagnosis: Same as Pre-op Surgeon: Duglas Durbin Anesthesia: General Drains & Tubes with Location: 12/13 left ureteral stent
[2019-12-21] MEDS ORDERED: ACETAMINOPHEN WITH CODEINE 300MG/30MG TABLET PO ONE (15:45)
--- NOTE | 2019-12-21 17:14 | OP ---
DATE OF OPERATION: 12/21/2019 PREOPERATIVE DIAGNOSIS: Left hydronephrosis with 8-mm stone causing an upper infundibular obstruction. POSTOPERATIVE DIAGNOSIS: High-grade upper pole hydronephrosis secondary to stone causing infundibular obstruction. OPERATION: Cystoscopy with left retrograde pyelogram and left ureteroscopic stone manipulation and stent placement. ATTENDING: Pietro Durbin MD. ANESTHESIA: General. DESCRIPTION OF PROCEDURE: The patient presented to the emergency room with severe nausea and vomiting and left flank pain. The patient has been unable to maintain fluids or a diet. The patient is noted to be in severe distress. Due to the level of her symptoms, the patient is emergently taken to the operating room. All risks and benefits have been explained to the patient. The patient is placed on the operating room table and given antibiotics and anesthesia. At this point the patient is placed in dorsal lithotomy position and prepped and draped in the usual sterile manner. Cystoscopy is performed with no evidence of stones within the bladder. The left ureteral orifice is identified. The retrograde pyelogram shows obstruction of the upper pole calyx. No contrast material enters the upper pole calyx, and there is backflow of the Hyp[place] into the venous system that is noted on fluoroscopy. At this point, the wire is placed up to the kidney. Ureteroscopy is then taken to the level of the upper infundibulum. A stone is noted. . At this point, a 2nd wire is utilized and passed into the upper pole calyx. With the wire in place, the stone is manipulated into the upper pole calyx. At this point, hematuria is noted, and there is poor visualization of the upper pole calyx. The stone had been visualized, though. With the wire placed in the upper pole calyx, the ureteroscope was removed. Utilizing the Seldinger technique, a 6 [place] 26-cm stent was placed over the wire with cystoscopic visualization. With fluoroscopic visualization, the stent was noted to be in the upper pole calyx along with drainage of the obstructed calyx. Patient tolerated procedure very well. There were no complications noted. Patient tolerated procedure very well. Disposition to the recovery room. The patient will be sent home today if she is able to tolerate a diet and is afebrile. PIETRO CARSON M.D. /[id number]
[2019-12-21 21:37] VITALS: BP 134/77; PULSE 89; TEMP 98.4
== END 2019-12-21 21:39 | disposition home or self-care (01) ==
LOC: JER 06:36 → UNDOADMIN 10:34 → JERBED 10:34 → JASUSAT 10:34 → J2C 11:30 → J4S 13:45 → JASUSAT 21:39
PROVIDERS: ATTEND Urology
PROC: 0T778DZ Dilation of Left Ureter with Intraluminal Device, Via Natural or Artificial Opening Endoscopic (ICD-10-PCS; principal; 2019-12-21 12:00)
DX: N13.2 Hydronephrosis with renal and ureteral calculous obstruction (principal)
CPT/HCPCS: 36415; 76775-TC; 76830-TC; 80053; 81003; 83690; 84703; 85025; 87086; 94760; 99285-25; J0131

== ENCOUNTER 2019-12-31 15:17 | Day surgery (SDC) | payer BC ==
[2019-12-28 13:38] VITALS: BMI 38.9
[2019-12-31] MEDS ORDERED: MIDAZOLAM HCL 2 MG/2 ML SINGLE DOSE VIAL ONE ×2 (16:53)
--- NOTE | 2019-12-31 17:20 | OP ---
Operative Note - Note: Operative Date: 12/31/19 Pre-Operative Diagnosis: Left renal stone Operation: Left ESWL Findings: 10mm proximal Left ureter stone Post-Operative Diagnosis: Same as Pre-op Surgeon: Duglas Durbin Anesthesia: Fractional Estimated Blood Loss (mls): 0 Drains & Tubes with Location: Left ureter JJ stent Operative Report Dictated: Yes
[2019-12-31] MEDS ORDERED: ACETAMINOPHEN INJECTION 100 ML IVPB ONE (18:10)
[2019-12-31] MEDS ORDERED: ACETAMINOPHEN 1000 MG/100 ML VIAL (NON FORMULARY) IVPB ONE ×2 (18:10→18:21)
[2019-12-31] MEDS ORDERED: oxyCODONE HCL 5 MG TABLET PO PRN (18:25)
[2019-12-31] MEDS ORDERED: ONDANSETRON 4 MG/2 ML VIAL IVPUSH PRN (18:25)
[2019-12-31] MEDS ORDERED: PROMETHAZINE HCL 25 MG/1 ML VIAL IVPUSH PRN (18:25)
[2019-12-31 19:46] VITALS: BP 130/83; PULSE 76; TEMP 97.7
--- NOTE | 2020-01-01 00:28 | OP ---
DATE OF OPERATION: 12/31/2019 PREOPERATIVE DIAGNOSIS: Left renal stone. POSTOPERATIVE DIAGNOSIS: Left renal stone. ATTENDING: Pietro Durbin MD. ANESTHESIA: Fractional. DESCRIPTION OF PROCEDURE: Patient has a history of left renal stone and is status post left ureteral stent. The patient was brought in the operating room, placed in a supine position on the operating room table. Ultrasonography and fluoroscopy were performed. A 10-mm UPJ stone is seen on ultrasonography and fluoroscopy. At this point, anesthesia and preoperative antibiotics are administered. Shockwave lithotripsy was then performed. 3000 impulses at 20 joules of power were administered to the stone. The patient tolerated the procedure very well. There were no complications noted. DISPOSITION: To recovery room. PIETRO CARSON M.D. [id number]
== END 2019-12-31 19:50 | disposition home or self-care (01) ==
LOC: JASU-SURG 15:17
PROVIDERS: ATTEND Urology
PROC: 0TF4XZZ Fragmentation in Left Kidney Pelvis, External Approach (ICD-10-PCS; principal; 2019-12-31 17:45)
DX: N20.0 Calculus of kidney (principal)
CPT/HCPCS: 84703; 94760; J0131

== ENCOUNTER 2020-02-11 04:13 | Day surgery (SDC) | payer BC ==
[2020-02-07 16:16] VITALS: BMI 38.7
[2020-02-11] MEDS ORDERED: MIDAZOLAM HCL 2 MG/2 ML SINGLE DOSE VIAL ONE ×2 (07:42→07:53)
[2020-02-11] MEDS ORDERED: PROPOFOL 20 ML ONE ×3 (07:52)
[2020-02-11] MEDS ORDERED: KETAMINE HCL 200 MG/20 ML VIAL ONE (07:54)
--- NOTE | 2020-02-11 08:45 | OP ---
Operative Note - Note: Operative Date: 02/11/20 Pre-Operative Diagnosis: Right renal stone Operation: Right ESWL Findings: 6 mm lower pole Right renal stone Post-Operative Diagnosis: Same as Pre-op Surgeon: Duglas Durbin Anesthesia: Regional Estimated Blood Loss (mls): 0 Operative Report Dictated: Yes
[2020-02-11] MEDS ORDERED: ACETAMINOPHEN 325 MG TABLET (FP) ONE (09:53)
--- NOTE | 2020-02-11 10:21 | OP ---
DATE OF OPERATION: 02/11/2020 PREOPERATIVE DIAGNOSIS: Right renal stone. POSTOPERATIVE DIAGNOSIS: Right renal stone. PROCEDURE: Right extracorporeal shock wave lithotripsy. ATTENDING: Pietro Carson MD ANESTHESIA: Fractional. DESCRIPTION OF PROCEDURE: Patient was brought in the operating room, placed in the supine position on the operating room table. Ultrasonography and fluoroscopy were performed. A 6-mm right lower pole stone was identified. Anesthesia and preoperative antibiotics were then administered. Shock wave lithotripsy was then started. Administered 2500 impulses, 17 joules of power to the stone with excellent fragmentation of the stone noted under real-time ultrasonography and fluoroscopy. No complications were noted. Disposition of the patient was to recovery room. PIETRO CARSON M.D. [id number]
[2020-02-11] MEDS ORDERED: ONDANSETRON 4 MG/2 ML VIAL ONE (10:45)
[2020-02-11] MEDS ORDERED: oxyCODONE HCL 5 MG TABLET PO PRN ×2 (10:54)
[2020-02-11] MEDS ORDERED: ACETAMINOPHEN 325 MG TABLET (FP) PO PRN (10:54)
[2020-02-11] MEDS ORDERED: ONDANSETRON 4 MG/2 ML VIAL IVPUSH PRN (10:54)
[2020-02-11] MEDS ORDERED: LACTATED RINGERS SOLUTION 1,000 ML IV SCH (11:00)
[2020-02-11 11:31] VITALS: BP 116/61; PULSE 92; TEMP 97.8
[2020-02-11] MEDS ORDERED: ACETAMINOPHEN 325 MG TABLET (FP) PO ONE (17:41)
== END 2020-02-11 12:18 | disposition home or self-care (01) ==
LOC: JASU-SURG 04:13
PROVIDERS: ATTEND Urology
PROC: 0TF3XZZ Fragmentation in Right Kidney Pelvis, External Approach (ICD-10-PCS; principal; 2020-02-11 08:07)
DX: N20.0 Calculus of kidney (principal)
CPT/HCPCS: 84703

== ENCOUNTER 2020-05-02 11:43 | Emergency (ER) | payer BC, OTHER ==
[2020-05-02 11:59] VITALS: BP 120/76; PULSE 72; TEMP 99.3; BMI 39.4
[2020-05-02] MEDS ORDERED: ACETAMINOPHEN 500 MG TABLET (FP) PO ONE (12:08)
[2020-05-02] MEDS ORDERED: ACETAMINOPHEN 500 MG TABLET (FP) ONE (12:27)
== END 2020-05-02 12:31 | disposition home or self-care (01) ==
LOC: FER 11:43
DX: S09.90XA Unspecified injury of head, initial encounter (principal)
CPT/HCPCS: 99283-25

== ENCOUNTER 2022-03-02 14:52 | Day surgery (SDC) | payer BC ==
[2022-03-02 15:49] VITALS: BMI 39.3
[2022-03-02] MEDS ORDERED: PROPOFOL 40 ML ONE (18:01)
[2022-03-02] MEDS ORDERED: MIDAZOLAM HCL 2 MG/2 ML SINGLE DOSE VIAL ONE (18:02)
[2022-03-02] MEDS ORDERED: KETOROLAC TROMETHAMINE 30 MG/1 ML VIAL ONE (18:46)
[2022-03-02] MEDS ORDERED: ONDANSETRON 4 MG/2 ML VIAL IVPUSH PRN (19:18)
[2022-03-02] MEDS ORDERED: oxyCODONE HCL 5 MG TABLET PO PRN (19:18)
[2022-03-02] MEDS ORDERED: LACTATED RINGERS SOLUTION 1,000 ML IV SCH (19:30)
[2022-03-02] MEDS ORDERED: ACETAMINOPHEN INJECTION 100 ML IVPB ONE (20:15)
[2022-03-02] MEDS ORDERED: ACETAMINOPHEN 1000 MG/100 ML BAG IVPB ONE (20:18)
[2022-03-02 20:30] VITALS: RESP 12
[2022-03-02 21:09] VITALS: TEMP 97
[2022-03-02 21:30] VITALS: BP 125/81; PULSE 78
== END 2022-03-02 21:35 | disposition home or self-care (01) ==
LOC: JASUSAT 14:52 → JASU-SURG 14:52 → JASUSAT 21:35
PROVIDERS: ATTEND Urology
PROC: 0T9680Z Drainage of Right Ureter with Drainage Device, Via Natural or Artificial Opening Endoscopic (ICD-10-PCS; principal; 2022-03-02 17:30)
PROC: 0T768DZ Dilation of Right Ureter with Intraluminal Device, Via Natural or Artificial Opening Endoscopic (ICD-10-PCS; 2022-03-02 17:30)
DX: N20.1 Calculus of ureter (principal)
CPT/HCPCS: 76000-TC-FY; 81025; 94760; C2617; C9803-CS; U0003; U0005

== ENCOUNTER → 2022-03-08 | Day surgery (SDC) | payer BC ==
[2022-03-04 12:43] VITALS: BMI 39.3
[~2022-03-08] MED LIST: KETOROLAC TROMETHAMINE 30 MG/1 ML VIAL ONE; MIDAZOLAM HCL 2 MG/2 ML SINGLE DOSE VIAL ONE; ONDANSETRON 4 MG/2 ML VIAL ONE; PROPOFOL 20 ML ONE
[2022-03-08 16:13] VITALS: RESP 18
[2022-03-08 16:33] VITALS: BP 109/62; PULSE 67; TEMP 98.3
== END | disposition home or self-care (01) ==
LOC: JASU-SURG 05:24
PROVIDERS: ATTEND Urology
PROC: 0TF6XZZ Fragmentation in Right Ureter, External Approach (ICD-10-PCS; principal; 2022-03-08 13:30)
DX: N20.1 Calculus of ureter (principal)
CPT/HCPCS: 81025

== ENCOUNTER 2022-03-22 04:44 | Day surgery (SDC) | payer BC ==
[2022-03-18 17:42] VITALS: BMI 39.3
[2022-03-22] MEDS ORDERED: ceFAZolin SODIUM 1 GM VIAL IVPB ONE (14:30)
[2022-03-22] MEDS ORDERED: GENTAMICIN 80MG PREMIX BAG IVPB ONE (14:35)
[2022-03-22] MEDS ORDERED: PROPOFOL 20 ML ONE (16:10)
[2022-03-22] MEDS ORDERED: DEXAMETHASONE SOD PHOSPHATE 4 MG/1 ML VIAL ONE (16:11)
[2022-03-22] MEDS ORDERED: ONDANSETRON 4 MG/2 ML VIAL ONE (16:11)
[2022-03-22] MEDS ORDERED: LIDOCAINE HCL/PF (2%) 40 MG/2 ML VIAL ONE (16:11)
[2022-03-22] MEDS ORDERED: SEVOFLURANE 250 ML BTL ONE (16:12)
[2022-03-22] MEDS ORDERED: oxyCODONE HCL 5 MG TABLET PO PRN ×2 (16:22)
[2022-03-22] MEDS ORDERED: ONDANSETRON 4 MG/2 ML VIAL IVPUSH PRN (16:22)
[2022-03-22] MEDS ORDERED: ACETAMINOPHEN 500 MG TABLET (FP) PO PRN (16:22)
[2022-03-22] MEDS ORDERED: PROMETHAZINE HCL 25 MG/1 ML VIAL IVPUSH PRN (16:22)
[2022-03-22] MEDS ORDERED: LACTATED RINGERS SOLUTION 1,000 ML IV SCH (16:30)
[2022-03-22] MEDS ORDERED: KETOROLAC TROMETHAMINE 30 MG/1 ML VIAL ONE (17:12)
[2022-03-22] MEDS ORDERED: ACETAMINOPHEN INJECTION 0 ML IVPB ONE (18:03)
[2022-03-22 18:43] VITALS: TEMP 97.2
[2022-03-22 18:54] VITALS: RESP 20
[2022-03-22 19:50] VITALS: BP 110/75; PULSE 70
[2022-03-29 11:07] LABS: SIZE <1 mm (.); WEIGHT <1 mg (.)
== END 2022-03-22 19:41 | disposition home or self-care (01) ==
LOC: JASU-SURG 04:44
PROVIDERS: ATTEND Urology
PROC: 0TC68ZZ Extirpation of Matter from Right Ureter, Via Natural or Artificial Opening Endoscopic (ICD-10-PCS; principal; 2022-03-22 14:00)
PROC: 0T768DZ Dilation of Right Ureter with Intraluminal Device, Via Natural or Artificial Opening Endoscopic (ICD-10-PCS; 2022-03-22 14:00)
DX: N20.1 Calculus of ureter (principal)
CPT/HCPCS: 36415; 76000-TC-FY; 81025; 82360; 88300-TC; 94760; C2617

== ENCOUNTER 2022-08-25 07:29 | Emergency (ER) | payer OTHER ==
[2022-08-25 07:45] VITALS: BP 128/83; PULSE 72; RESP 18; TEMP 99; BMI 38.7
== END 2022-08-25 08:58 | disposition home or self-care (01) ==
LOC: FER 07:29
DX: S80.02XA Contusion of left knee, initial encounter (principal); S80.212A Abrasion, left knee, initial encounter; W00.0XXA Fall on same level due to ice and snow, initial encounter
CPT/HCPCS: 73562-TC-LT-FY; 99283-25

== ENCOUNTER 2023-08-09 10:19 | Emergency (ER) | payer BC, OTHER ==
[2023-08-09 10:25] VITALS: TEMP 98.2; BMI 32.3
[2023-08-09] MEDS ORDERED: ACETAMINOPHEN INJECTION 100 ML IVPB ONE (10:58)
[2023-08-09] MEDS ORDERED: ONDANSETRON 4 MG/2 ML VIAL ONE (10:59)
[2023-08-09 11:41] LABS: EPI CELLS >36 /uL (0-25.1); HYALINE CASTS 6 /uL (0-3.1); URINE APPEARANCE CLOUDY; URINE BACTERIA 1558 /uL (0-1359); URINE BILIRUBIN NEGATIVE (NEGATIVE); URINE COLOR DK YELLOW; URINE GLUCOSE (UA) NEGATIVE (NEGATIVE); URINE KETONE TRACE (NEGATIVE); URINE LEUK ESTERASE 1+ (NEGATIVE); URINE NITRITE NEGATIVE (NEGATIVE); URINE PROTEIN TRACE (NEGATIVE); URINE UROBILINOGEN 0.2 mg/dL (0.2-1.0); URINE WBC 77 /uL (0-25.8)
[2023-08-09] MEDS: ACETAMINOPHEN 1000 MG/100 ML BAG IVPB ONE (11:41)
[2023-08-09] MEDS: LACTATED RINGERS SOLUTION 1000 ML INFUS.BAG IV ONE (11:41)
[2023-08-09] MEDS: ONDANSETRON 4 MG/2 ML VIAL IVPUSH ONE (11:42)
[2023-08-09 11:56] LABS: HCG,QUALITATIVE URINE Negative
[2023-08-09 12:10] LABS: POTASSIUM 4.6 mmol/L (3.5-5.1)
[2023-08-09 12:17] LABS: ALBUMIN 3.5 g/dl (3.4-5.0); CALCIUM 9.5 mg/dL (8.5-10.1); MAGNESIUM 1.8 mg/dL (1.8-2.4)
[2023-08-09 12:20] LABS: CREATININE 0.7 mg/dL (0.55-1.3)
[2023-08-09 12:21] LABS: BILIRUBIN,TOTAL 0.9 mg/dL (0.2-1); BLOOD UREA NITROGEN 17.4 mg/dL (7-18)
[2023-08-09 12:27] LABS: TOT PROT 7.4 g/dl (6.4-8.2)
[2023-08-09] MEDS ORDERED: CEFTRIAXONE 1 GM/50 ML BAG ONE (12:32)
[2023-08-09] MEDS ORDERED: KETOROLAC TROMETHAMINE 15 MG/ML VIAL ONE (12:32)
[2023-08-09] MEDS: CEFTRIAXONE 1 GM in DEXTROSE 5%-WATER - 100 ML IVPB ONE (12:38)
[2023-08-09] MEDS: KETOROLAC TROMETHAMINE 15 MG/ML VIAL IVPUSH ONE (12:38)
[2023-08-09 14:37] LABS: HEMATOCRIT 41.2 % (32.4-45.2); MCH 30.4 pg (25.7-33.7); MCHC 34.1 g/dl (32.0-36.0); MEAN CELL VOLUME 89.2 fl (80-96); MEAN PLT VOLUME 8.2 fl (7.5-11.1); PLATELET COUNT 315 10^3/uL (134-434); RBC 4.61 M/mm3 (3.60-5.2); RDW 13.3 % (11.6-15.6); WHITE BLOOD COUNT 9.1 K/mm3 (4.0-10.0)
[2023-08-09 15:28] LABS: ANISOCYTOSIS 0; HELMET CELLS 0; HOWELL-JOLLY BODIES 0; MACROCYTOSIS 0; OVALOCYTE 0; ROULEAU 0; SICKELED CELLS 0; TARGET CELLS 0; TEAR DROP CELLS 0; TOXIC GRANULATION 0
[2023-08-09 16:08] VITALS: BP 109/60; PULSE 94; RESP 16
[2023-08-09] MEDS ORDERED: SIMETHICONE 80 MG TAB.CHEW (FP) ONE (16:22)
[2023-08-09] MEDS ORDERED: DICYCLOMINE HCL 10 MG CAPSULE ONE (16:22)
[2023-08-09] MEDS ORDERED: MAG HYDROX/AL HYDROX/SIMETH 30 ML UNIT-DOSE CUP ONE (16:23)
[2023-08-09] MEDS: SIMETHICONE 80 MG TAB.CHEW (FP) PO ONE (16:32)
[2023-08-09] MEDS: DICYCLOMINE HCL 10 MG CAPSULE PO ONE (16:32)
[2023-08-09] MEDS: MAG HYDROX/AL HYDROX/SIMETH 30 ML UNIT-DOSE CUP PO ONE (16:32)
== END 2023-08-09 17:01 | disposition home or self-care (01) ==
LOC: JER 10:19
PROC: 3E03329 Introduction of Other Anti-infective into Peripheral Vein, Percutaneous Approach (ICD-10-PCS; principal; 2023-08-09)
PROC: 3E033GC Introduction of Other Therapeutic Substance into Peripheral Vein, Percutaneous Approach (ICD-10-PCS; 2023-08-09)
PROC: 3E033GC Introduction of Other Therapeutic Substance into Peripheral Vein, Percutaneous Approach (ICD-10-PCS; 2023-08-09)
PROC: 3E033GC Introduction of Other Therapeutic Substance into Peripheral Vein, Percutaneous Approach (ICD-10-PCS; 2023-08-09)
DX: R11.2 Nausea with vomiting, unspecified (principal); R50.9 Fever, unspecified; R10.9 Unspecified abdominal pain; M54.50 Low back pain, unspecified; K52.9 Noninfective gastroenteritis and colitis, unspecified; N20.0 Calculus of kidney; N39.0 Urinary tract infection, site not specified
CPT/HCPCS: 36415; 74178-TC; 80053; 81003; 83735; 84703; 85025; 87086; 99284-25; J0131; Q9967

== ENCOUNTER 2023-09-20 10:14 | Emergency (ER) | payer OTHER, BC ==
[2023-09-20 10:34] VITALS: BP 122/73; PULSE 78; RESP 18; TEMP 98.4; BMI 32.0
== END 2023-09-20 11:23 | disposition home or self-care (01) ==
LOC: FER 10:14
DX: M25.561 Pain in right knee (principal); M25.562 Pain in left knee; M25.552 Pain in left hip; Z00.8 Encounter for other general examination; Y04.8XXA Assault by other bodily force, initial encounter
CPT/HCPCS: 99282-25

== ENCOUNTER 2023-11-08 16:24 | Emergency (ER) | payer BC ==
[2023-11-08 16:34] VITALS: BP 138/80; PULSE 80; RESP 16; TEMP 97.9; BMI 32.7
[2023-11-08 16:48] LABS: HCG,QUALITATIVE URINE Negative
[2023-11-08] MEDS ORDERED: ACETAMINOPHEN INJECTION 100 ML IVPB ONE (17:08)
[2023-11-08] MEDS: ACETAMINOPHEN 1000 MG/100 ML BAG IVPB ONE (17:15)
[2023-11-08 17:23] LABS: HEMATOCRIT 40.3 % (32.4-45.2); HEMOGLOBIN 13.4 G/dL (10.7-15.3); MCH 30.5 pg (25.7-33.7); MCHC 33.3 g/dl (32.0-36.0); MEAN CELL VOLUME 91.7 fl (80-96); MEAN PLT VOLUME 8.5 fl (7.5-11.1); PLATELET COUNT 334.1 10^3/uL (134-434); RBC 4.39 10^6/uL (3.60-5.2); WHITE BLOOD COUNT 10.7 10^3/uL (4.0-10.8)
[2023-11-08 17:25] LABS: INR 0.85 (0.83-1.09); PROTHROMBIN TIME (PATIENT) 9.7 SEC (9.7-13.0)
[2023-11-08 17:26] LABS: EPITHELIAL CELLS 0-5 /hpf
[2023-11-08 17:28] LABS: ACTIVATED PTT 28.8 SECONDS (25.2-36.5)
[2023-11-08 17:29] LABS: PLATELET ESTIMATE ADEQUATE
[2023-11-08 17:34] LABS: ALBUMIN 3.9 g/dl (3.4-5.0); BILIRUBIN,TOTAL 0.4 mg/dl (0.2-1); CALCIUM 9.5 mg/dl (8.5-10.1); CREATININE 0.8 mg/dl (0.6-1.3); MAGNESIUM 1.8 mg/dL (1.8-2.4); POTASSIUM 4.1 mmol/L (3.5-5.1); TOT PROT 6.1 g/dl (6.4-8.2)
[2023-11-08] MEDS ORDERED: KETOROLAC TROMETHAMINE 15 MG/ML VIAL ONE (19:02)
[2023-11-08] MEDS: KETOROLAC TROMETHAMINE 15 MG/ML VIAL IVPUSH ONE (19:05)
== END 2023-11-08 20:20 | disposition home or self-care (01) ==
LOC: FER 16:24
PROC: 3E033NZ Introduction of Analgesics, Hypnotics, Sedatives into Peripheral Vein, Percutaneous Approach (ICD-10-PCS; principal; 2023-11-08)
PROC: 3E0333Z Introduction of Anti-inflammatory into Peripheral Vein, Percutaneous Approach (ICD-10-PCS; 2023-11-08)
DX: R10.31 Right lower quadrant pain (principal); R10.2 Pelvic and perineal pain; N83.201 Unspecified ovarian cyst, right side; R10.32 Left lower quadrant pain
CPT/HCPCS: 36415; 76775-TC; 76830-TC; 80053; 81003; 81015; 83735; 84703; 85025; 85610; 85730; 86850; 86900; 86901; 99284-25; J0131